=== PATIENT | male | born 1945 | race Caucasian/White ===

== ENCOUNTER 2019-01-02 19:10 | Emergency (ER) | payer OTHER, BC ==
[2019-01-02 19:32] VITALS: BP 126/84; PULSE 52; TEMP 98.1; BMI 24.7
[2019-01-02 20:14] LABS: BASO % 0.9 % (0-2.0); HEMATOCRIT 41.8 % (35.4-49); HEMOGLOBIN 13.9 GM/dl (11.7-16.9); LYMPH % 8.7 % (8-40); MCH 33.1 pg (25.7-33.7); MCHC 33.3 g/dl (32.0-35.9); MEAN CELL VOLUME 99.4 fl (80-96); MEAN PLT VOLUME 6.3 fl (7.5-11.1); MONO % 3.9 % (3.8-10.2); NEUT % 86.5 % (42.8-82.8); PLATELET COUNT 154 K/MM3 (134-434); RBC 4.21 M/mm3 (4.00-5.60); RDW 14.9 % (11.9-15.9); WHITE BLOOD COUNT 8.5 K/mm3 (4.0-10.8)
[2019-01-02 20:18] LABS: INR 1.02 (0.82-1.09); PROTHROMBIN TIME (PATIENT) 11.4 SEC (10.2-13.0)
[2019-01-02 20:23] LABS: ALBUMIN 3.8 g/dl (3.4-5.0); BILIRUBIN,TOTAL 0.9 mg/dl (0.2-1); CALCIUM 9.1 mg/dl (8.5-10); POTASSIUM 4.7 mmol/L (3.5-5.1); TOT PROT 5.9 g/dl (6.4-8.2)
--- NOTE | 2019-01-03 01:40 | PDOC ---
Documentation entered by Shilpa Wilks SCRIBE, acting as scribe for Elsa Huston MD. Elsa Huston MD: This documentation has been prepared by the scribe, Shilpa Wilks SCRIBE, under my direction and personally reviewed by me in its entirety. I confirm that the documentation accurately reflects all work, treatment, procedures, and medical decision making performed by me. 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 Patients is at the bedside and is providing history. She reports that he received an infusion of Avastin yesterday and was normal up until this afternoon when he woke up from his nap. She reports that he seemed disoriented and was not responding appropriately to any of her questions. She called his doctors office and spoke to the [employer] BUSINESS [employer]NER who advised that she give him an extra dose of his steroid medication. Patients condition did not improve so decided to report to the ED for further evaluation. History is limited due to patients clinical condition. Past History - Suicide/Smoking/Psychosocial Hx Smoking History: Never smoked Have you smoked in the past 12 months: No Information on smoking cessation initiated: No Hx Alcohol Use: No Drug/Substance Use Hx: No Review of Systems - Review of Systems Able to Perform ROS?: Yes Comments:: ROS is limited due to patient's clinical condition. *Physical Exam - Vital Signs Last Vital Signs Temp Pulse Resp BP Pulse Ox 98.1 F 52 L 18 126/84 100 01/02/19 19:20 01/02/19 19:20 01/02/19 19:20 01/02/19 19:20 01/02/19 19:20 - Physical Exam Comments: 01/02/19 20:15 GENERAL: Awake and responsive, in no acute distress HEAD: No signs of trauma EYES: PERRLA, EOMI, sclera anicteric, conjunctiva clear ENT: Auricles normal inspection, hearing grossly normal, nares patent, oropharynx clear without exudates. Moist mucosa NECK: Normal ROM, supple, no lymphadenopathy, JVD, or masses LUNGS: Breath sounds equal, clear to auscultation bilaterally. No wheezes, and no crackles HEART: Regular rate and rhythm, normal S1 and S2, no murmurs, rubs or gallops ABDOMEN: Soft, nontender, normoactive bowel sounds. No guarding, no rebound. No masses EXTREMITIES: Normal range of motion, no edema. No clubbing or cyanosis. No cords, erythema, or tenderness NEUROLOGICAL: (+)Disoriented but speaking clearly. No dysarthria. (+) Responses were not appropriate consistently. SKIN: Warm, Dry, normal turgor, no rashes or lesions noted. ED Treatment Course - LABORATORY CBC & Chemistry Diagram: 01/02/19 20:00 01/02/19 20:00 - ADDITIONAL ORDERS Additional order review: Laboratory Results 01/02/19 01/02/19 01/02/19 20:00 20:00 20:00 PT with INR 11.4 INR 1.02 Sodium 138 Potassium 4.7 Chloride 101 Carbon Dioxide 29 Anion Gap 8 BUN 36.0 H Creatinine 1.0 Est GFR (CKD-EPI)AfAm 87.37 Est GFR (CKD-EPI)NonAf 75.39 Random Glucose 138 H Calcium 9.1 Total Bilirubin 0.9 AST 19 ALT 23 Alkaline Phosphatase 47 Creatine Kinase 47 Troponin I < 0.03 Total Protein 5.9 L Albumin 3.8 01/02/19 20:00 RBC 4.21 MCV 99.4 H MCHC 33.3 RDW 14.9 MPV 6.3 L Neutrophils % 86.5 H Lymphocytes % 8.7 Monocytes % 3.9 Eosinophils % 0.0 Basophils % 0.9 - RADIOLOGY Radiology Studies Ordered: Category Date Time Status HEAD CT WITHOUT CONTRAST [CT] Stat CT Scan 01/02/19 19:45 Completed Medical Decision Making - Medical Decision Making As noted above, this 73-year-old man with a history of glioblastoma (left occipital location),s/p resection and subsequent RT/chemotherapy. Now on Avastin therapy (last dose yesterday), presents with sudden disorientation. Patient was behaving normally earlier in the day and in fact played tennis. He awakened from his nap afternoon responsive and speaking clearly but disoriented. No other symptoms noted by his .. Exam as noted : The patient is speaking in a clear voice but answers are not not appropriate to question. No other focal neurologic deficit present. Basic laboratory evaluation of CBC and chemistry profile sent and patient has stacked noncontrast head CT performed to evaluate for acute bleed or other acute intracranial pathology. CBC is normal. Chemistry profile notable for significant prerenal azotemia with BUN is 36 and creatinine of 1.[address] interpreted by Dr. Manjarrez of the radiology staff: No evidence of acute intracranial hemorrhage. Evidence of previous parietal craniotomy but no midline shift, new masses or other acute pathology. No previous studies available for comparison. Results discussed with the patient's . Although he is becoming more oriented, he still has some confusion. Admission for observation and full neurologic consultation is warranted. Although patient may be significantly dehydrated possibly causing his symptoms, acute CVA is not ruled out since nonhemorrhagic CVA would not be seen this early on the CT. This was clearly explained to the patient's . However, patient's (who is his healthcare proxy) is adamantly against admission of the patient stating that she will urge the patient to drink fluids and follow-up with his doctor tomorrow at [facility]. The patient is signed out against medical advice by his . *DC/Admit/Observation/Transfer Diagnosis at time of Disposition: Altered mental status Qualifiers: Altered mental status type: disorientation Qualified Code(s): R41.0 - Disorientation, unspecified - Discharge Dispostion Disposition: AGAINST MEDICAL ADVICE - Referrals - Patient Instructions Additional Instructions: followup with your doctor at [facility] tomorrow - Post Discharge Activity
== END 2019-01-02 21:54 | disposition left against medical advice (07) ==
LOC: FER 19:10
DX: R41.0 Disorientation, unspecified (principal); C71.9 Malignant neoplasm of brain, unspecified
CPT/HCPCS: 36415; 70450-TC; 80053; 82550; 84484; 85025; 85610; 99282-25